=== PATIENT | female | born 1940 | race Caucasian/White ===

== ENCOUNTER → 2016-03-04 | Outpatient (CLI) | payer OTHER ==
--- NOTE | 2016-03-04 12:34 | DX ---
Chest, Two Views at 1157 hours History: Hypoxia. R09.32. Comparison: January 2016 Findings: Dextrocardia. Elevated left hemidiaphragm. Cervical fusion hardware.. Cardiac silhouette is within normal range. No pneumonia, congestive heart failure, pleural effusion, or pneumothorax. Mini mal linear scarring in the right lower lobe. Lumbar fusion hardware. Impression: 1. Dextrocardia. 2. No definite pneumonia or congestive heart failure.
== END ==
LOC: CIMAGING 11:15 → EDSTATUS 11:16 → CIMAGING 11:20
PROVIDERS: ATTEND Internal Medicine Critical Care Medicine
DX: R09.02 Hypoxemia (principal)
CPT/HCPCS: 71020-PO

== ENCOUNTER → 2016-03-11 | Outpatient (CLI) | payer OTHER | LOC: BHFA 16:00 | PROVIDERS: ATTEND Internal Medicine Cardiovascular Disease | DX: I47.1 Supraventricular tachycardia (principal) ==

== ENCOUNTER 2016-12-30 10:35 | Day surgery (SDC) | payer OTHER ==
[2016-12-30] MEDS ORDERED: ATROPINE SULFATE 1 MG/10 ML SYR IVP ONE (12:44)
[2016-12-30] MEDS ORDERED: MIDAZOLAM 2 MG/2 ML VIAL IVP ONE (12:44)
[2016-12-30] MEDS ORDERED: fentaNYL 100 MCG/2 ML INJ IVP ONE (12:44)
[2016-12-30] MEDS ORDERED: BENZOCAINE UNIT DOSE SPRAY HURRICAINE MM ONE (12:44)
[2016-12-30] MEDS ORDERED: NS 500 ML IV ONE (12:44)
[2016-12-30 13:26] LABS: INR 1.21 (0.83-1.16); PROTIME(PATIENT) 15.3 SEC (12.0-15.0)
[2016-12-30 13:27] LABS: APTT 29.8 SEC (23.0-38.0)
[2016-12-30 13:32] LABS: ANION GAP 9 mEq/L (8-16); CALCIUM 9.8 mg/dL (8.5-10.4); CARBON DIOXIDE 32 mEq/l (22-31); CHLORIDE 100 mEq/L (97-110); CREATININE 0.8 mg/dL (0.6-1.0); GLOMERULAR FILTRATION RATE > 60; GLUCOSE 96 mg/dL (70-100); POTASSIUM 4.2 mEq/L (3.5-5.2); SODIUM 141 mEq/L (134-144)
--- NOTE | 2016-12-30 15:25 | PDANEPAE ---
ANE History of Present Illness atrial flutter ANE Past Medical History - Cardiovascular History Hx Hypertension: Yes Hx Arrhythmias: Yes Hx CHF / Valvular Disease: No Hx Palpitations: Yes Cardiovascular History Comment: SVT w/ablation 07-29,,Dr Rivera detected arrhythmia on LOOP monitor that pt has implanted in chest. - Pulmonary History Hx COPD: Yes Hx Oxygen in Use at Home: Yes Hx Sleep Apnea: Yes Pulmonary History Comment: SOB w/exertion,restrictive lung disease. NICHELLE w/CPAP - Neurologic History Hx Cerebrovascular Accident: No Hx Seizures: No Hx Dementia: No Neurologic History Comment: migraines - Endocrine History Hx Diabetes: No Obesity: yes - Renal History Hx Renal Disorders: No - Liver History Hx Hepatic Disorders: No - Neurological & Psychiatric Hx Hx Neurological and Psychiatric Disorders: Yes Neurological / Psychiatric History Comment: "no feeling in hands" due to cervical fusion.depression - Cancer History Hx Cancer: No - Congenital Disorder History Hx Congenital Disorders: No - GI History Hx Gastrointestinal Disorders: Yes Gastrointestinal History Comment: on Bentyl- nausea, gas - Other Health History Other Health History: wound L lower leg from tripping on a step . OA -all joints replaced. - Chronic Pain History Chronic Pain: Yes (Chronic back pain and headaches) - Surgical History Prior Surgeries: ablation for SVT,Bilat Total hips,L hip replaced x2,bilat knees ,bilat shoulders,open franny,cervical and lumbar fusions,ulnar nerve transposition,Trach (resp failure after spinal fusion) ANE Review of Systems Review of Systems: ANE Patient History - Allergies Allergies/Adverse Reactions: No Known Allergies Allergy (Verified 11/18/15 14:09) - Home Medications Home Medications: DULoxetine [Cymbalta 60 MG (*)] 60 mg PO DAILY 07/27/13 [Last Taken 01/20/16] Aspirin EC [Aspirin EC 81 mg (*)] 81 mg PO DAILY 08/13/14 [Last Taken 01/16/16] Atorvastatin Calcium [Lipitor 10 mg (*)] 10 mg PO HS 08/19/15 [Last Taken ] SUMAtriptan [Imitrex 50 MG (*)] 50 mg PO DAILY PRN 08/19/15 [Last Taken 14:00] Gabapentin [Neurontin 300 MG (*)] 900 mg PO TID 11/17/15 [Last Taken 01/20/16 21 :00] Acetaminophen/ASA/Caffeine [Excedrin Tablet (*)] 1 each PO DAILY PRN 01/21/16 [ Last Taken 01/16/16] - Smoking Hx Smoking Status: Former smoker ANE Labs/Vital Signs - Labs Result Diagrams: 12/30/16 13:00 ANE Physical Exam - Airway Neck exam: spinal fusion Mallampati Score: Class 3 Mouth exam: normal dental/mouth exam - Pulmonary Pulmonary: reduced air movement - Cardiovascular Cardiovascular: regular rate and rhythym - ASA Status ASA Status: III ANE Anesthesia Plan Total IV Anesthesia: Yes
[2016-12-30] MEDS ORDERED: PROPOFOL 200 MG/20 ML VIAL ONE (15:30)
--- NOTE | 2016-12-30 15:53 | EPPROC ---
Electrophysiology Procedure Note: Procedure: CV Indication: Atrial flutter Procedure: Pt sedated by anesthesia staff. Once sedated, NAVJOT performed ( dictated seperately). Once LA clot ruled out, synchronized DCCV at 200J performed. pt converted to SR. Conclusion: Successful CV Patient Problems: Problems Problem Status Onset Supraventricular tachycardia Acute
--- NOTE | 2016-12-30 15:55 | POSTANESTH ---
Post Anesthetic Evaluation Cardiovascular Status: Normal, Stable Respiratory Status: Normal, Stable Level of Consciousness/Mental Status: Can Participate in Eval Pain Control: Adequate, Prn Tx Ordered Nausea/Vomiting Control: Adequate, Prn Tx Ordered Complications Possibly Related to Anesthesia: None Noted
== END 2016-12-30 17:38 | disposition home or self-care (01) ==
LOC: FCATH 10:35
PROVIDERS: ATTEND Internal Medicine Cardiovascular Disease
PROC: 5A2204Z Restoration of Cardiac Rhythm, Single (ICD-10-PCS; principal; 2016-12-30)
DX: I48.92 Unspecified atrial flutter (principal); E78.5 Hyperlipidemia, unspecified; G47.33 Obstructive sleep apnea (adult) (pediatric); Z79.01 Long term (current) use of anticoagulants; Z68.42 Body mass index [BMI] 45.0-49.9, adult; Z79.891 Long term (current) use of opiate analgesic
CPT/HCPCS: J2704

== ENCOUNTER → 2017-02-02 | Outpatient (CLI) | payer OTHER | LOC: CIMAGING 10:17 | PROVIDERS: ATTEND Family Medicine | DX: Z12.31 Encounter for screening mammogram for malignant neoplasm of breast (principal) | CPT/HCPCS: G0202 ==

== ENCOUNTER → 2017-07-13 | Outpatient (CLI) | payer OTHER | LOC: BHFA 08:30 | PROVIDERS: ATTEND Internal Medicine Cardiovascular Disease | DX: I47.1 Supraventricular tachycardia (principal); I47.2 Ventricular tachycardia | CPT/HCPCS: 78452; 93017; 93306; A9500; J2785 ==

== ENCOUNTER 2017-08-10 07:31 | Day surgery (SDC) | payer OTHER ==
[2017-08-10] MEDS ORDERED: DIAZEPAM 5 MG TAB PO ONE (07:36)
[2017-08-10] MEDS ORDERED: diphenhydrAMINE 25 MG CAP PO ONE (07:36)
[2017-08-10] MEDS ORDERED: FAMOTIDINE 20 MG TAB PO ONE (07:36)
[2017-08-10] MEDS ORDERED: NS 1,000 ML IV ONE (07:36)
[2017-08-10] MEDS ORDERED: ASPIRIN EC 325 MG TAB PO ONE (07:36)
--- NOTE | 2017-08-10 08:07 | CPEKG ---
Heart Rate: 86 RR Interval: 698 P-R Interval: 144 QRSD Interval: 116 QT Interval: 432 QTC Interval: 517 P [place]: 53 QRS [place]: 195 T Wave [place]: -11 EKG Severity - ABNORMAL ECG - EKG Impression: SINUS RHYTHM EKG Impression: PROBABLE LEFT ATRIAL ABNORMALITY EKG Impression: NONSPECIFIC INTRAVENTRICULAR CONDUCTION DELAY EKG Impression: MINIMAL ST DEPRESSION, ANTEROLATERAL LEADS Electronically Signed By: Kd Davis 11-Aug-2017 08:18:05
--- NOTE | 2017-08-10 08:17 | PDHPUP ---
History & Physical Update H&P update statement: This history and physical update is based on an assessment of the patient which was completed after admission or registration (within 24 hours), but prior to the surgery/procedure. H&P update: H&P reviewed & patient examined, no change in patient's condition since H&P completed
--- NOTE | 2017-08-10 08:17 | PDPROPOC ---
Sedation Plan of Care Sedation Plan of Care: vital signs stable, mental status noted, patient educated of risks, benefits, alternatives, patient can tolerate sedation ASA Classification: ASA 3 Planned drugs: fentanyl, midazolam Mallampati Score: Class 2 Mallampati Reference Image: Patient passed 3-3-2 rule?: Yes
[2017-08-10 08:21] LABS: PLATELET COUNT 204 10^3/uL (150-400)
[2017-08-10 08:29] LABS: PROTIME(PATIENT) 13.4 SEC (12.0-15.0)
[2017-08-10] MEDS ORDERED: IOPAMIDOL (ISOVUE-370) 150 ML BTL IV ONE ×3 (09:02→10:42)
[2017-08-10] MEDS ORDERED: VERAPAMIL 5 MG/2 ML VIAL ONE ×3 (09:02→10:40)
[2017-08-10] MEDS ORDERED: LIDOCAINE 1% 300 MG/30 ML SDV ONE ×3 (09:02→10:40)
[2017-08-10] MEDS ORDERED: HEPARIN 10,000 UNIT/10 ML MDV (1,000 UNIT/ML) ONE ×2 (09:02→09:16)
[2017-08-10] MEDS ORDERED: MIDAZOLAM 2 MG/2 ML VIAL ONE ×2 (09:15→10:26)
[2017-08-10] MEDS ORDERED: fentaNYL 100 MCG/2 ML INJ ONE (09:15)
--- NOTE | 2017-08-10 09:37 | PDGENHP ---
History & Physical Chief Complaint: Or wide complex tachycardia History of Present Illness: 77-year-old female history of cardiac dysrhythmia status post multiple ablation is here for evaluation of coronary status in the setting of ventricular tachycardia. Relevant Physical Exam: 130/70. Morbidly obese. Radial pulses +2 and equal. Regular rate and rhythm without gallop. Extremities free of edema. Lungs decreased breath sounds otherwise clear. Cardiorespiratory Assessment: Wide complex tachycardia query VT plan for coronary angiogram from the right radial artery for assessment of risk.
--- NOTE | 2017-08-10 11:10 | PDDXCAT ---
Diagnostic Cath Note - . Date: 08/10/17 Pan Shover: Ayden Indication: Non-sustained (<30 sec) polymorphic ventricular tachycardia High-risk criteria on non-invasive testing: stress-induced mod-size perf defect w LV dilatation or inc lung uptake - Procedure Access: right wrist Procedure: left heart catheterization, coronary angiography, left ventriculogram , other (Access right and left wrist) - Materials Left Heart Cath size: 5F Left Heart Cath materials: JL3.5, pigtail, Eduar's R - Findings-Left Heart Catheterization LM: Unobstructed LAD: Dextrocardia with rightward takeoff. Unobstructed LCX: Dextrocardia unobstructed RCA: Dominant: Unobstructed EDP: 15 mm of mercury LVEF: 64 Wall motion: Normal Complications: Accessed left wrist to assess left coronary artery Estimated blood loss: <50ml Closure method: TR Band Assessment: Dextrocardia with angiographically normal coronary arteries. Normal LV systolic function with normal filling pressures. Plan: Primary prevention. Intervention: Diagnostic procedure complicated by inability to access the left main coronary artery from the right wrist. Left radial artery was percutaneously accessed without complication. Patient was found to have dextrocardia. Patient Problems: Problems Problem Status Onset Supraventricular tachycardia Acute
[2017-08-10] MEDS ORDERED: SUMAtriptan 50 MG TAB PO ONE (12:15)
[2017-08-10 15:27] VITALS: BP 115/78
== END 2017-08-10 15:37 | disposition home or self-care (01) ==
LOC: FCATH 07:31
PROVIDERS: ATTEND Internal Medicine Cardiovascular Disease
PROC: 4A023N7 Measurement of Cardiac Sampling and Pressure, Left Heart, Percutaneous Approach (ICD-10-PCS; principal; 2017-08-10)
PROC: B2151ZZ Fluoroscopy of Left Heart using Low Osmolar Contrast (ICD-10-PCS; principal; 2017-08-10)
PROC: B2111ZZ Fluoroscopy of Multiple Coronary Arteries using Low Osmolar Contrast (ICD-10-PCS; principal; 2017-08-10)
DX: Q24.0 Dextrocardia (principal); I47.2 Ventricular tachycardia
CPT/HCPCS: 93005; 93458; C1887; C1769; J1644; J2250; J3010; Q9967

== ENCOUNTER 2017-11-03 07:20 | Day surgery (SDC) | payer OTHER ==
[2017-11-03] MEDS ORDERED: fentaNYL 100 MCG/2 ML INJ IVP ONE (07:34)
[2017-11-03] MEDS ORDERED: BENZOCAINE UNIT DOSE SPRAY HURRICAINE MM ONE (07:34)
[2017-11-03] MEDS ORDERED: MIDAZOLAM 2 MG/2 ML VIAL IVP ONE (07:34)
[2017-11-03] MEDS ORDERED: ATROPINE SULFATE 1 MG/10 ML SYR IVP ONE (07:34)
[2017-11-03] MEDS ORDERED: NS 500 ML IV ONE (07:34)
[2017-11-03 08:29] LABS: INR 1.33 (0.83-1.16); PROTIME(PATIENT) 16.7 SEC (12.0-15.0)
--- NOTE | 2017-11-03 09:49 | PDANEPAE ---
ANE History of Present Illness here for NAVJOT/CV ANE Past Medical History - Cardiovascular History Hx Hypertension: Yes Hx Arrhythmias: Yes Hx CHF / Valvular Disease: No Hx Palpitations: Yes Cardiovascular History Comment: SVT w/ablation 07-29,,Dr Rivera detected arrhythmia on LOOP monitor that pt has implanted in chest. - Pulmonary History Hx COPD: Yes Hx Oxygen in Use at Home: Yes Hx Sleep Apnea: Yes Pulmonary History Comment: SOB w/exertion,restrictive lung disease. NICHELLE w/CPAP - Neurologic History Hx Cerebrovascular Accident: No Hx Seizures: No Hx Dementia: No Neurologic History Comment: migraines - Endocrine History Hx Diabetes: No - Renal History Hx Renal Disorders: No - Liver History Hx Hepatic Disorders: No - Neurological & Psychiatric Hx Hx Neurological and Psychiatric Disorders: Yes Neurological / Psychiatric History Comment: "no feeling in hands" due to cervical fusion.depression - Cancer History Hx Cancer: No - Congenital Disorder History Hx Congenital Disorders: No - GI History Hx Gastrointestinal Disorders: Yes Gastrointestinal History Comment: on Bentyl- nausea, gas - Other Health History Other Health History: wound L lower leg from tripping on a step . OA -all joints replaced. - Chronic Pain History Chronic Pain: Yes (Chronic back pain and headaches) - Surgical History Prior Surgeries: ablation for SVT,Bilat Total hips,L hip replaced x2,bilat knees ,bilat shoulders,open franny,cervical and lumbar fusions,ulnar nerve transposition,Trach (resp failure after spinal fusion) ANE Review of Systems Review of systems is: negative Review of Systems: - Exercise capacity Exercise capacity: <4 METS ANE Patient History - Allergies Allergies/Adverse Reactions: No Known Allergies Allergy (Verified 11/18/15 14:09) - Home Medications Home medications: home medication list seen and reviewed Home Medications: DULoxetine [Cymbalta 60 MG (*)] 60 mg PO DAILY 07/27/13 [Last Taken 11/02/17 06: 30] Atorvastatin Calcium [Lipitor 10 mg (*)] 10 mg PO HS 08/19/15 [Last Taken 18:30] Gabapentin [Neurontin 300 MG (*)] 300 mg PO HS 11/17/15 [Last Taken 11/02/17 18: 30] Apixaban [Eliquis] 2.5 mg PO BID 08/08/17 [Last Taken 11/03/17 06:30] Dicyclomine [Bentyl 10 MG (*)] 10 mg PO TID PRN 08/08/17 [Last Taken 11/02/17 18 :30] Herbals/Supplements -Info Only 1 ea PO DAILY 08/08/17 [Last Taken 11/02/17 18:30 ] Omeprazole 40 mg PO HS 08/08/17 [Last Taken 11/02/17 18:30] busPIRone [Buspar (*)] 7.5 mg PO BID 08/08/17 [Last Taken 11/02/17 18:30] SUMAtriptan [Imitrex 50 MG (*)] 50 mg PO DAILY PRN 08/10/17 [Last Taken 06:30] - NPO status NPO Status: no food or drink >8 hours - Smoking Hx Smoking Status: Former smoker ANE Labs/Vital Signs - Labs Result Diagrams: 11/03/17 08:10 - Vital Signs Height: 152 cm Weight: 95.3 kg ANE Physical Exam - Airway Neck exam: decreased ROM, spinal fusion, short neck Mallampati Score: Class 2 Mouth exam: normal dental/mouth exam, small mouth opening - Pulmonary Pulmonary: no respiratory distress - Cardiovascular Cardiovascular: other - ASA Status ASA Status: III ANE Anesthesia Plan Anesthesia Plan: GA with mask
[2017-11-03] MEDS ORDERED: SUCCINYLCHOLINE CHLORIDE 200 MG/10 ML SYR IVP ONE (09:56)
[2017-11-03] MEDS ORDERED: PROPOFOL 200 MG/20 ML VIAL ONE (09:56)
--- NOTE | 2017-11-03 10:20 | PDHPUP ---
History & Physical Update H&P update statement: This history and physical update is based on an assessment of the patient which was completed after admission or registration (within 24 hours), but prior to the surgery/procedure. Pt remains in Atrial Flutter. On Eliquis 5 mg bid. Took Eliquis this AM. H&P update: H&P reviewed & patient examined, no change in patient's condition since H&P completed
--- NOTE | 2017-11-03 11:32 | CPR ---
DATE OF PROCEDURE: 11/03/2017 PROCEDURE PERFORMED: Transesophageal echocardiogram and direct current cardioversion. INDICATION FOR PROCEDURE: Symptomatic atrial flutter. PROCEDURE: After informed consent was obtained for NAVJOT and cardioversion, as well as sedation with a nesthesia, patient had a bite block put in place. Once bite block was in place, sedation was deliver ed via IV with propofol. Once appropriate level of sedation was achieved, NAVJOT probe was passed witho ut incident. NAVJOT probe was used to take images of the left atrial appendage in multiple angles and u sing X-plane imaging. Please see NAVJOT report for full details. There is no evidence of left atrial o r left atrial appendage thrombus. NAVJOT probe was removed without incident. Patient underwent successful cardioversion with a single biphasic synchronized shock of 200 joules wi th taoist of sinus rhythm at approximately 96 beats per minute. Patient woke from procedure wel l. She tolerated the procedure. She is recovering appropriately. PLAN: Patient will be discharged home later this morning. Patient will continue on outpatient medic ations, including Eliquis 5 mg p.o. b.i.d. /[id number]/MODL
--- NOTE | 2017-11-03 12:11 | CPEKG ---
Test Reason : OPEN Blood Pressure : / mmHG Vent. Rate : 114 BPM Atrial Rate : 057 BPM P-R Int : 057 ms QRS Dur : 133 ms QT Int : 335 ms P-R-T Axes : 000 220 002 degrees QTc Int : 462 ms Atrial flutter Right bundle branch block Inferior infarct, acute Atrial flutter is new in comparison to prior Confirmed by Kd Yanez ([id number]) on 11/03/2017 12:11:15 PM Referred By: Confirmed By:Kd Yanez
--- NOTE | 2017-11-03 12:37 | CPEKG ---
Test Reason : OPEN Blood Pressure : / mmHG Vent. Rate : 091 BPM Atrial Rate : 090 BPM P-R Int : 141 ms QRS Dur : 138 ms QT Int : 396 ms P-R-T Axes : 012 219 029 degrees QTc Int : 488 ms Sinus rhythm Nonspecific intraventricular conduction delay Normal sinus rhythm has replaced atrial flutter Confirmed by Kd Yanez ([id number]) on 11/03/2017 12:36:33 PM Referred By: Confirmed By:Kd Yanez
--- NOTE | 2017-11-03 17:57 | ECHO ---
[email or web address] [place] [id number] Main: [phone] Fax: Transesophageal Echocardiography Name: CALE MENARD MR#: [id number] Study Date: 11/03/2017 Study Time: 10:19 AM Date of : 1940 Age: 77 year(s) Height: ( ) Weight: ( ) BSA: Gender: Female Examination: NAVJOT Indication: Pre cardioversion Image Quality: Technically Difficult Contrast: Requested by: Reed Helms Heart Rate: Rhythm: BP: / Procedure Staff Beaver Trapper: Socorro Tang [facility] Reading Physician: Reed Helms MD Requesting Provider: NAVJOT Exam Details Conclusions: Normal size left ventricle. Normal global systolic LV function. Evidence of atrial septal aneurys. The left atrial appendage is unilobular. Good color flow doppler in the left atrial appendage. No thrombus in left appendage. Hyperlipomatous interatrial septum with hypermobility. Measurements: Chambers Valvular Assessment AV/MV Valvular Assessment TV/PV Normal Normal Normal Name Value Range Name Value Range Name Value Range Additional Measurements: Findings: Left Ventricle: Normal size left ventricle. Normal global systolic LV function. Right Ventricle: Normal size right ventricle. Normal RV function. Left Atrium: Evidence of atrial septal aneurys. Left Atrial Appendage: Patient: CALE MENARD Study Date: 11/03/2017 Page 1 of 2 10:19 AM The left atrial appendage is unilobular. Good color flow doppler in the left atrial appendage. No thrombus in left appendage. Hyperlipomatous interatrial septum with hypermobility. Mitral Valve: The mitral valve is normal in appearance and function. Mild mitral valve regurgitation is present. No mitral stenosis is present. Aortic Valve: The aortic valve is tri-leaflet. Mild aortic valve regurgitation is present. Tricuspid Valve: The tricuspid valve is normal in appearance and function. Pulmonic Valve: The pulmonic valve is normal in appearance and function. l1n (No Signature Object) Patient: CALE CODYN: [id number] Study Date: 11/03/2017 Page 2 of 2 10:19 AM [id number]
== END 2017-11-03 12:00 | disposition home or self-care (01) ==
LOC: FCATH 07:20
PROVIDERS: ATTEND Internal Medicine Cardiovascular Disease
DX: I48.92 Unspecified atrial flutter (principal); I10 Essential (primary) hypertension; J44.9 Chronic obstructive pulmonary disease, unspecified; G47.33 Obstructive sleep apnea (adult) (pediatric); Z79.01 Long term (current) use of anticoagulants; Z87.891 Personal history of nicotine dependence; Z96.643 Presence of artificial hip joint, bilateral; Z98.1 Arthrodesis status
CPT/HCPCS: J0330; J2704

== ENCOUNTER 2018-01-25 06:38 | Observation (INO) | payer OTHER ==
[2018-01-25] MEDS ORDERED: NS 1,000 ML IV ONE (06:48)
[2018-01-25 07:41] LABS: PLATELET COUNT 227 10^3/uL (150-400)
[2018-01-25 07:52] LABS: INR 1.03 (0.83-1.16); PROTIME(PATIENT) 13.7 SEC (12.0-15.0)
--- NOTE | 2018-01-25 08:12 | PDANEPAE ---
ANE History of Present Illness ep ANE Past Medical History - Cardiovascular History Hx Hypertension: Yes Hx Arrhythmias: Yes Hx Chest Pain: No Hx Coronary Artery / Peripheral Vascular Disease: No Hx CHF / Valvular Disease: No Hx Palpitations: Yes Cardiovascular History Comment: SVT w/ablation 07-29,,Dr Rivera detected arrhythmia on LOOP monitor that pt has implanted in chest. - Pulmonary History Hx COPD: Yes Hx Asthma/Reactive Airway Disease: No Hx Recent Upper Respiratory Infection: No Hx Oxygen in Use at Home: Yes Hx Sleep Apnea: Yes Pulmonary History Comment: SOB w/exertion,restrictive lung disease. NICHELLE w/CPAP - Neurologic History Hx Cerebrovascular Accident: No Hx Seizures: No Hx Dementia: No Neurologic History Comment: migraines - Endocrine History Hx Diabetes: No Hypothyroid: No Hyperthyroid: No Obesity: moderate - Renal History Hx Renal Disorders: No - Liver History Hx Hepatic Disorders: No - Neurological & Psychiatric Hx Hx Neurological and Psychiatric Disorders: Yes Neurological / Psychiatric History Comment: "no feeling in hands" due to cervical fusion.depression - Cancer History Hx Cancer: No - Congenital Disorder History Hx Congenital Disorders: No - GI History Hx Gastrointestinal Disorders: Yes Gastrointestinal History Comment: on Bentyl- nausea, gas - Other Health History Other Health History: wound L lower leg from tripping on a step . OA -all joints replaced. - Chronic Pain History Chronic Pain: Yes (Chronic back pain and headaches) - Surgical History Prior Surgeries: ablation for SVT,Bilat Total hips,L hip replaced x2,bilat knees ,bilat shoulders,open franny,cervical and lumbar fusions,ulnar nerve transposition,Trach (resp failure after spinal fusion) ANE Review of Systems Review of Systems: - Exercise capacity Exercise capacity: <4 METS ANE Patient History - Allergies Allergies/Adverse Reactions: No Known Allergies Allergy (Verified 11/18/15 14:09) - Home Medications Home medications: home medication list seen and reviewed Home Medications: DULoxetine [Cymbalta 60 MG (*)] 60 mg PO DAILY 07/27/13 [Last Taken 1 Day Ago ~ 01/24/18] Atorvastatin Calcium [Lipitor 10 mg (*)] 10 mg PO HS 08/19/15 [Last Taken 1 Day Ago ~01/24/18] Dicyclomine [Bentyl 10 MG (*)] 10 mg PO TID PRN 08/08/17 [Last Taken 1 Day Ago ~ 01/24/18] Herbals/Supplements -Info Only 1 ea PO DAILY 08/08/17 [Last Taken 1 Day Ago ~01/01] Omeprazole 40 mg PO HS 08/08/17 [Last Taken 1 Day Ago ~01/24/18] busPIRone [Buspar (*)] 7.5 mg PO BID 08/08/17 [Last Taken 1 Day Ago ~01/24/18] SUMAtriptan [Imitrex 50 MG (*)] 50 mg PO DAILY PRN 08/10/17 [Last Taken 1 Day Ago ~01/24/18] Apixaban [Eliquis] 5 mg PO BID 01/16/18 [Last Taken 01/22/18] Cholecalciferol Vit D3 [Vitamin D3 (*)] 1,000 units PO HS 01/16/18 [Last Taken 1 Day Ago ~01/24/18] Furosemide [Lasix 20 MG (*)] 10 mg PO DAILY 01/16/18 [Last Taken 1 Day Ago ~01/01] Hydrocodone/Acetaminophen [[place] 7.5-325 Tablet] 1 each PO DAILY PRN 01/16/18 [ Last Taken Unknown] Naproxen Sodium [Aleve 220 MG (*)] 220 mg PO BID 01/16/18 [Last Taken 1 Day Ago ~01/24/18] - NPO status NPO Status: no food or drink >8 hours - Anes Hx Anes Hx: post operative nausea and vomiting Hx Anesthesia Complications (with details): difficult airway, video laryngoscopy ok - Smoking Hx Smoking Status: Former smoker ANE Labs/Vital Signs - Labs Result Diagrams: 01/25/18 07:20 01/25/18 07:20 - Vital Signs Height: 152.4 cm Weight: 95.254 kg ANE Physical Exam - Airway Neck exam: spinal fusion Mallampati Score: Class 2 Mouth exam: normal dental/mouth exam - Pulmonary Pulmonary: no respiratory distress - Cardiovascular Cardiovascular: regular rate and rhythym - ASA Status ASA Status: III ANE Anesthesia Plan Anesthesia Plan: general endotracheal anesthesia Specialized Airway: video laryngoscope
[2018-01-25] MEDS ORDERED: LIDOCAINE 1% 300 MG/30 ML SDV ONE (08:16)
[2018-01-25] MEDS ORDERED: BUPIVACAINE 0.75% 10 ML SDV ONE (08:17)
[2018-01-25] MEDS ORDERED: ISOPROTERENOL HCL/D5W 0.2 MG/50 ML BAG IV ONE (08:17)
[2018-01-25] MEDS ORDERED: HEPARIN 10,000 UNIT/10 ML MDV (1,000 UNIT/ML) ONE (08:17)
[2018-01-25] MEDS ORDERED: SUCCINYLCHOLINE CHLORIDE 200 MG/10 ML SYR IVP ONE (08:30)
[2018-01-25] MEDS ORDERED: PROPOFOL 200 MG/20 ML VIAL ONE (08:30)
[2018-01-25] MEDS ORDERED: fentaNYL 100 MCG/2 ML INJ ONE (08:30)
[2018-01-25] MEDS ORDERED: DEXAMETHASONE 4 MG/ML VIAL ONE ×2 (08:30→09:26)
[2018-01-25] MEDS ORDERED: LIDOCAINE 2% 2 ML INJ ONE ×3 (08:30)
[2018-01-25] MEDS ORDERED: ROCURONIUM 50 MG/5 ML VIAL ONE (08:30)
--- NOTE | 2018-01-25 08:37 | PDGENHP ---
History & Physical Chief Complaint: Atrial flutter History of Present Illness: She has recently experienced recurrent episodes of atrial flutter requiring cardioversion x2. History of AVNRT ablation. Relevant Physical Exam: General: A&Ox4, no apparent distress. Respiratory: CTA. Cardiac: Regular rate and rhythm, S1, S2. Extremities: Pulses 2+ bilaterally, no edema, normal exam Cardiorespiratory Assessment: Proceed with atrial flutter ablation as planned for today. She understands the possibility that she may require ventilatory support for a period post-procedure given her compromised respiratory status
[2018-01-25] MEDS ORDERED: PHENYLEPHRINE 10 MG/ML SDV ONE (08:57)
[2018-01-25] MEDS ORDERED: ROCURONIUM 100 MG/10 ML VIAL ONE (10:05)
[2018-01-25] MEDS ORDERED: SUGAMMADEX SODIUM 200 MG/2 ML VIAL IVP ONE (10:14)
[2018-01-25] MEDS ORDERED: DICYCLOMINE 10 MG CAP PO PRN (10:25)
[2018-01-25] MEDS ORDERED: HYDROCODONE/APAP 10/325 TAB PO PRN (10:45)
--- NOTE | 2018-01-25 10:54 | EPPROC ---
Electrophysiology Procedure Note: ELECTROPHYSIOLOGIC STUDY AND CATHETER MEDIATED ABLATION FOR SUBEUSTACHIAN ISTHMUS DEPENDENT COUNTERCLOCKWISE ATRIAL FLUTTER: INDICATION: Recurrent atrial flutter PROCEDURES PERFORMED: 27261-93 EP evaluation with RA/RV/LA pace/record, with arrhythmia induction 50983-60 EP evaluation with RA/RV pace record, insert/reposition catheter, with arrhythmia induction 68826 SVT ablation 85196 3D mapping Fluoroscopy Catheters & Anesthesia: The patient arrived in the Electrophysiology Laboratory in the fasting state. The right clavicular region, right groin, and left groin area were prepped and draped in the usual sterile manner. Anesthesiologist Dr. Pérez Brown administered general anesthesia. Appropriate non-invasive blood pressure, pulse oximetry and end-tidal CO2 monitoring was established. All catheters were placed percutaneously using the modified Seldinger technique , and advanced into position under fluoroscopic guidance. One #7 Polish deflectable octapolar electrode catheter was advanced to the His-bundle position via the left femoral vein (2mm spacing; except the proximal ring which was 25cm from the tip used for unipolar recordings). This was then placed in the Coronary sinus. One # 7 Polish Halo catheter was inserted through the right femoral vein and was placed at the tricuspid annulus. RA was enlarged, heart was rightward rotated. Heparin was administered to keep ACT > 200 seconds. Programmed stimulation was performed from the right atrium, coronary sinus ( left atrium) and right ventricle. Parahisian pacing demonstrated all retrograde conduction over the AV node. No antegrade slow AV tarun pathway. On arrival to the Electrophysiology Laboratory the patient was in sinus rhythm. Atrial flutter has been seen previously. In preparation for ablation of typical atrial flutter, a high-resolution 3D (3 dimensional) Carto electroanatomical map of the sub-Eustachian isthmus and right atrium was obtained during pacing of the posterolateral coronary sinus. For ablation of typical atrial flutter, one Mobi sheath was placed in the right atrium. A #8 Polish deflectable quadrapolar electrode catheter (2mm-5mm-2mm spacing) with 3.5 mm irrigated tip electrode and location sensor for the [employer] mapping system was inserted in the long sheath and advanced to the right atrium. Radiofrequency applications were applied between the tricuspid annulus at 0630 oclock as seen in the [place] view and the inferior vena cava. This achieved conduction block across the isthmus. Of note the CT isthmus is small and vertically oriented. Post ablation, a high-resolution electroanatomical map of the sub-Eustachian isthmus was obtained during pacing of the posterolateral coronary sinus. This confirmed conduction block across the sub-Eustachian isthmus. Bidirectional block was also confirmed by pacing. The catheters were removed. Protamine was administered. Sheaths were removed in the EP lab after applying subcutaneous purse string suture. The patient was transferred to the cardiovascular holding area in stable condition. There were no apparent complications. CONCLUSIONS: 1. Atrial flutter. 2. Successful catheter mediated ablation of cavotricuspid isthmus achieving bi -directional conduction block across cavotricuspid isthmus. 3. No apparent complications. Patient Problems: Problems Problem Status Onset Atrial flutter Acute Supraventricular tachycardia Acute
[2018-01-25] MEDS ORDERED: NALOXONE HCL 0.4 MG/ML INJ IVP PRN (11:06)
[2018-01-25] MEDS ORDERED: MIDAZOLAM 2 MG/2 ML VIAL IVP PRN (11:06)
[2018-01-25] MEDS ORDERED: ONDANSETRON 4 MG/2 ML VIAL IVP PRN ×2 (11:06→21:30)
[2018-01-25] MEDS ORDERED: ALBUTEROL 3 ML DEYVIAL IH PRN (11:06)
[2018-01-25] MEDS ORDERED: fentaNYL 100 MCG/2 ML INJ IVP PRN (11:06)
--- NOTE | 2018-01-25 11:19 | CPEKG ---
Test Reason : OPEN Blood Pressure : / mmHG Vent. Rate : 111 BPM Atrial Rate : 111 BPM P-R Int : 076 ms QRS Dur : 135 ms QT Int : 355 ms P-R-T Axes : -25 212 026 degrees QTc Int : 483 ms Sinus tachycardia Nonspecific intraventricular conduction delay Confirmed by Pedro Ashton ([id number]) on 01/25/2018 11:18:56 AM Referred By: Confirmed By:Pedro Ashton
[2018-01-25] MEDS ORDERED: KETOROLAC 30 MG/1 ML SDV IVP ONE (11:22)
[2018-01-25] MEDS: SUMAtriptan 50 MG TAB PO PRN ×2 (15:39→18:53)
--- NOTE | 2018-01-25 16:12 | ASMTCMCOM ---
CM Note CM Note Notes: Spoke with pt in the room. Pt anticipates discharge will be tomorrow and confirms that family will provide transport and support. No therapies ordered. No CM needs identified at this time. CM to follow. D/C Plan: Independent Date Signed: 01/25/2018 04:12 PM Electronically Signed By:Noris Marcelo
--- NOTE | 2018-01-25 17:58 | CPEKG ---
Test Reason : OPEN Blood Pressure : / mmHG Vent. Rate : 095 BPM Atrial Rate : 095 BPM P-R Int : 157 ms QRS Dur : 143 ms QT Int : 402 ms P-R-T Axes : 050 221 029 degrees QTc Int : 506 ms Sinus rhythm Nonspecific intraventricular conduction delay Confirmed by Pedro Ashton ([id number]) on 01/25/2018 5:57:38 PM Referred By: Confirmed By:Pedro Ashton
[2018-01-25] MEDS ORDERED: CHOLECALCIFEROL VIT D3 1,000 UNITS TAB PO SCH (21:00)
[2018-01-25] MEDS ORDERED: PANTOPRAZOLE SODIUM 40 MG TAB PO SCH (21:00)
[2018-01-25] MEDS ORDERED: DILTIAZEM XR 240 MG CAP PO SCH (21:00)
[2018-01-25] MEDS ORDERED: ATORVASTATIN CALCIUM 10 MG TAB PO SCH (21:00)
[2018-01-25] MEDS ORDERED: ACETAMINOPHEN 325 MG TAB PO PRN (21:29)
[2018-01-25] MEDS: busPIRone 5 MG TAB PO SCH (22:00)
[2018-01-25] MEDS ORDERED: ACETAMN/DIPHENHYDRAMINE 500/25MG TAB PO PRN (22:00)
[2018-01-25] MEDS: CEPHALEXIN 500 MG CAP PO SCH (22:01)
[2018-01-25] MEDS: APIXABAN 5 MG TAB PO SCH (22:03)
[2018-01-25] MEDS: NAPROXEN SODIUM 220 MG TAB PO SCH (22:03)
[2018-01-26 04:30] LABS: PLATELET COUNT 209 10^3/uL (150-400)
[2018-01-26] MEDS: APIXABAN 5 MG TAB PO SCH (08:12)
[2018-01-26] MEDS: CEPHALEXIN 500 MG CAP PO SCH (08:12)
[2018-01-26] MEDS: busPIRone 5 MG TAB PO SCH (08:13)
[2018-01-26] MEDS: NAPROXEN SODIUM 220 MG TAB PO SCH (08:13)
[2018-01-26] MEDS ORDERED: FUROSEMIDE 20 MG TAB PO SCH (09:00)
[2018-01-26] MEDS ORDERED: DULoxetine 60 MG CAP PO SCH (09:00)
[2018-01-26] MEDS ORDERED: Herbals/Supplements -Info Only PO SCH (09:00)
--- NOTE | 2018-01-26 09:58 | CPEKG ---
Test Reason : OPEN Blood Pressure : / mmHG Vent. Rate : 100 BPM Atrial Rate : 099 BPM P-R Int : 121 ms QRS Dur : 131 ms QT Int : 364 ms P-R-T Axes : 023 218 028 degrees QTc Int : 470 ms Sinus tachycardia Ventricular premature complex Nonspecific intraventricular conduction delay Confirmed by Pedro Ashton ([id number]) on 01/26/2018 9:58:22 AM Referred By: Confirmed By:Pedro Ashton
[2018-01-26] MEDS: SUMAtriptan 50 MG TAB PO PRN (11:26)
[2018-01-26 11:36] VITALS: BP 105/71
--- NOTE | 2018-01-26 11:57 | ECHO ---
[email or web address] [address] Main: [phone] Fax: Transthoracic Echocardiogram Name: CALE MENARD MR#: [id number] Study Date: 01/26/2018 Study Time: 10:30 AM Date of : 1940 Age: 77 year(s) Height: 152.4 cm (60 in.) Weight: 95.26 kg (210 lb.) BSA: 1.91 m2 Gender: Female Examination: Echo Indication: Post EP Image Quality: Technically Difficult Contrast: Requested by: Moris Marte BP: 128 mmHg/69 mmHg Heart Rate: Rhythm: Indication: Post EP Procedure Staff Clay Press Operator: Alexx Ny RDCS Reading Physician: Joni Rivera MD Requesting Provider: Conclusions: Normal size left ventricle. Grade 1 diastolic dysfunction (abnormal relaxation). No pericardial effusion. Cannot exclude regional wall motion abnormality due to TDS. Measurements: Chambers Valvular Assessment AV/MV Valvular Assessment TV/PV Normal Normal Normal Name Value Range Name Value Range Name Value Range Ao [place] (MM): 2.9 cm (2.2 cm-3.7 AV Vmax: 0.79 m/s (1 m/s-1.7 PV Vmax: 0.99 m/s (0.6 m/s-0.9 cm) m/s) m/s) IVSd (2D): 0.9 cm (0.6 cm-1.1 AV maxP mmHg ( - ) PV PGmax: 4 mmHg ( - ) cm) LVOT Vmax: 0.43 m/s (0.7 m/s-1.1 LVDd (2D): 4.1 cm (3.9 cm-5.3 m/s) cm) MV E Vmax: 0.58 m/s ( - ) LVDs (2D): 2.8 cm (2.1 cm-4 MV A Vmax: 0.72 m/s ( - ) cm) MV E/A: 0.81 ( - ) LVPWd (2D): 1.0 cm ( - ) LVEF (2D): 63 (>=54 %) Continued Measurements: Chambers Valvular Assessment AV/MV Name Value Name Value LADs Lon.9 cm MV E' Septal: 0.04 m/s LA Area: 16.0 cm2 MV E/E' Septal: 12.90 LA Volume: 42 ml LA Volume Index: 22.0 ml/m2 Patient: CALE MENARD Study Date: 01/26/2018 Page 1 of 2 10:30 AM Findings: Left Ventricle: Normal size left ventricle. No LV hypertrophy. Grade 1 diastolic dysfunction (abnormal relaxation). This is a known technically difficult echo. Pt states that she has been told that her diaphram gets in the way of her images.. Right Ventricle: Normal size right ventricle. Normal RV function. Left Atrium: The left atirum is borderline dilated. Right Atrium: The right atrium is not well visualized. Mitral Valve: Mild mitral valve leaflet calcification is present. Aortic Valve: The aortic valve is tri-leaflet. The Aortic valve opens well.. Tricuspid Valve: Tricuspid valve not well visualized. Pulmonic Valve: Pulmonary valve not well visualized. Aorta: The aorta is normal. Pericardium: No pericardial effusion. (No Signature Object) Patient: CALE MENARD Study Date: 01/26/2018 Page 2 of 2 10:30 AM D:_[id number]
--- NOTE | 2018-01-26 13:05 | ASDISCHSUM ---
Discharge Information Plan Status:Home with No Needs Medically Cleared to Leave:01/25/2018 Discharge Date:01/26/2018 12:59 PM CM D/C Disposition:Home, Routine, Self-Care ADT D/C Disposition:Home, Routine, Self-Care Projected Discharge Date:01/26/2018 12:59 PM Transportation at D/C:Family Discharge Delay Reason: Follow-Up Date:01/26/2018 12:59 PM Discharge Slot: Final Diagnosis: Placement Information Patient Contact Information Contact Name:NUBIA Relationship: Address:[address] [place] [address] Work Phone: City:[place] Alternate Phone: [facility]/Zip Code:[place] [address] Email: Financial Information Financial Class:Medicare Primary Plan Desc:MEDICARE OUTPATIENT Primary Plan Number:[id number] Secondary Plan Desc:MONIQUE JOSEP Secondary Plan Number:[id number] Assessment Information [facility] CM Progress Note CM Note CM Note Notes: Spoke with pt in the room. Pt anticipates discharge will be tomorrow and confirms that family will provide transport and support. No therapies ordered. No CM needs identified at this time. CM to follow. D/C Plan: Independent Date Signed: 01/25/2018 04:12 PM Electronically Signed By:Noris Marcelo LACE MADISYN Length of stay for Answers: 1 day current admission Acuity / Level of Answers: No Care: Did the patient have an inpatient admission? Comorbidities - select Answers: Chronic pulmonary disease all that apply Opioid dependence / Chronic pain Other Notes: HTN # of Emergency department Answers: 0 visits in the last 6 months Social determinants Answers: Mental health diagnosis (anxiety, depression, pers onality disorders, etc.) Score: 11 Date Signed: 01/26/2018 01:04 PM Electronically Signed By:Ivone Brand RN Intervention Information Intervention Type:*LUIS M-Signed Date of Service:01/26/2018 10:27 AM Patient Type:Observation Staff Member:Ashley Gee Hours: Discipline: Severity: Comment:
--- NOTE | 2018-01-26 18:45 | GDS ---
SUPERVISING METAL BUFFER: Joni Rivera MD ADMISSION DIAGNOSIS: Atrial flutter. DISCHARGE DIAGNOSIS: Atrial flutter, status post successful ablation. HOSPITAL COURSE: Patient presented January 25, 2018, for atrial flutter ablation in the setting of increasing frequency of atrial flutter requiring recent cardioversion. She underwent successful ablation with Dr. Joni Rivera without any intra-procedure complications. She has done well in the post procedure period. She did have an episode of atrial tachycardia noted on telemetry overnight. She continues to alternate between NSR and atrial tachycardia this morning with well-controlled ventricular rates. She otherwise reports feeling very well this morning and has been up ambulating around her room. Echocardiogram this morning is stable compared to baseline. Laboratory studies and ECG are also stable. She is appropriate for discharge home today. PHYSICAL EXAM: GENERAL: No apparent distress. She is alert and oriented x4. VITAL SIGNS: Blood pressure 105/71, heart rate 99, SpO2 97% on 3 L nasal cannula, temp 36.7 degrees Celsius. RESPIRATORY: Lungs are clear to auscultation without adventitious breath sounds. No rales, rhonchi, wheezing, or diminished breath sounds. She continues to wear supplemental oxygen. CARDIAC: Normal S1 and S2. No S3, S4. Rhythm is regular. She has no peripheral edema, cyanosis, or pallor. EXTREMITIES: Warm and well perfused. Capillary refill is less than 2 seconds. Bilateral lower extremities are without significant edema. Bilateral purse string sutures removed intact without evidence of hematoma, redness, swelling, oozing, or warmth. LABORATORY STUDIES: Drawn this morning. CBC and BMP are stable. Troponin is 0.453, which is to be expected in the postprocedure setting. PROCEDURES: Electrophysiology study and atrial flutter ablation as mentioned above. Preliminary echocardiogram this morning is stable compared to baseline without any new wall motion abnormalities or evidence of pericardial effusion. Electrocardiogram done today demonstrates atrial tachycardia at 100 beats per minute without any new ST or T-wave abnormalities. DISCHARGE DISPOSITION: Patient will be discharged home in stable condition. She is under activity restriction and may not lift more than 10 pounds for 10 days. She understands that she must walk around every 45 minutes for 45 days, and she may not engage in any submerged bathing for the next 10 days. DISCHARGE MEDICATIONS: Please see discharge med reconciliation sheet. Please note that her Eliquis has been restarted in the postprocedure period along with her diltiazem and atorvastatin. DISCHARGE INSTRUCTIONS: Post atrial flutter ablation discharge instructions reviewed in detail with patient. We reviewed monitoring for signs of infection , bleeding precautions, activity restrictions, and medication compliancy. She has a followup scheduled with Dr. Rivera in approximately 3 weeks. At the time of discharge, she verbalized understanding regarding all instructions and has no questions or concerns. She will contact our clinic if she experiences any new or concerning symptoms prior to her followup visit. TOTAL TIME SPENT ON DISCHARGE: Greater than 30 minutes in counseling, education , and coordination of care. /[id number]/MODL MTDD
== END 2018-01-26 12:59 | disposition home or self-care (01) ==
LOC: FCATH 06:38 → F2W 10:21
PROVIDERS: ADMIT Registered Nurse; ATTEND Internal Medicine Cardiovascular Disease
DX: I48.92 Unspecified atrial flutter (principal); I47.1 Supraventricular tachycardia; I10 Essential (primary) hypertension; G47.33 Obstructive sleep apnea (adult) (pediatric); J44.9 Chronic obstructive pulmonary disease, unspecified; G43.909 Migraine, unspecified, not intractable, without status migrainosus; Z79.01 Long term (current) use of anticoagulants; Z87.891 Personal history of nicotine dependence; Z96.643 Presence of artificial hip joint, bilateral; Z96.653 Presence of artificial knee joint, bilateral; Z98.1 Arthrodesis status
CPT/HCPCS: 93005; 93306; 93613; 93621; 93653; C1731; C1732; C1766; J0330; J1100; J1644; J1885; J2370; J2405; J2704; J3010

== ENCOUNTER → 2018-02-17 | Outpatient (CLI) | payer OTHER | LOC: CIMAGING 10:44 | PROVIDERS: ATTEND Family Medicine | DX: Z12.31 Encounter for screening mammogram for malignant neoplasm of breast (principal) ==

== ENCOUNTER → 2018-02-23 | Outpatient (CLI) | payer OTHER | LOC: BHFA 10:45 | PROVIDERS: ATTEND Internal Medicine Cardiovascular Disease | DX: I48.92 Unspecified atrial flutter (principal) ==